=== PATIENT | male | born 1950 | race African-American/Black ===

== ENCOUNTER 2021-01-23 15:36 | Inpatient (IN) | payer BC ==
[~2021-01-23] VITALS: Ht 172.7 cm; Wt 106.6 kg
[2021-01-23] MEDS ORDERED: METHYLPREDNISOLONE SOD SUCC 125 MG/2 ML VIAL IV STA (16:54)
[2021-01-23] MEDS ORDERED: ALBUTEROL (0.083%) 2.5MG/3ML NEB HHN STA (16:54)
[2021-01-23] MEDS ORDERED: IPRATROPIUM BROMIDE (0.02%) 0.5MG/2.5ML NEB HHN STA (16:54)
[2021-01-23 17:42] LABS: BASOPHILS % 0.3 % (0.0-2.0); EOSINOPHILS % 3.2 % (0.0-5.0); HEMOGLOBIN. 12.8 g/dL (14.0-18.0); LYMPHOCYTES % 13.7 % (20.0-50.0); MEAN CORPUSCULAR HEMOGLOBIN 29.6 pg (28.0-32.0); MEAN CORPUSCULAR VOLUME 90.1 fL (80.0-94.0); MEAN PLATELET VOLUME 6.6 fl (7.4-10.4); NEUTROPHILS % 74.8 % (40.0-76.0); PLATELET 315 x1000/uL (130-400); RED BLOOD CELL COUNT 4.33 mill/uL (4.7-6.1); RED CELL DISTRIBUTION WIDTH 15.2 % (11.6-14.6)
[2021-01-23 17:46] LABS: CHLORIDE 104 mEq/L (98-107)
[2021-01-23 17:53] LABS: ETHANOL BLOOD < 10 mg/dL
[2021-01-23 17:59] LABS: INR 1.1; PARTIAL THROMBOPLASTIN TIME 25.2 sec (23.4-31.0); PROTHROMBIN TIME 11.4 sec (9.6-11.0)
[2021-01-23] MEDS ORDERED: SODIUM CHLORIDE 0.9% 1000ML BAG (SEPSIS BOLUS) IV ONE (18:15)
[2021-01-23] MEDS ORDERED: CEFTRIAXONE 1 G PREMIX 50 ML IV ONE (18:15)
[2021-01-23] MEDS ORDERED: AZITHROMYCIN 500MG/250ML 250 ML IV ONE (18:15)
[2021-01-23] MEDS ORDERED: ASPIRIN 325MG EC TABLET PO ONE (18:15)
[2021-01-23] MEDS ORDERED: IOHEXOL-350 100 ML BOTTLE ONE (21:27)
[2021-01-24 06:57] LABS: CLARITY URINE CLEAR (CLEAR); COLOR URINE YELLOW (YELLOW); KETONES URINE TRACE (NEGATIVE); LEUKOCYTE ESTERASE URINE NEGATIVE (NEGATIVE); NITRITE URINE POSITIVE (NEGATIVE); OCCULT BLOOD URINE 3+ (NEGATIVE); PROTEIN URINE TRACE (NEGATIVE); SPECIFIC GRAVITY URINE 1.057 (1.005-1.030)
[2021-01-24 07:25] LABS: *AMPHETAMINES SCREEN URINE NEGATIVE (NEGATIVE); *BARBITURATES SCREEN URINE NEGATIVE (NEGATIVE); *BENZODIAZEPINES SCREEN URINE NEGATIVE (NEGATIVE); *COCAINE SCREEN URINE NEGATIVE (NEGATIVE); CANNABINOID URINE SCREEN NEGATIVE (NEGATIVE); METHADONE URINE SCREEN NEGATIVE (NEGATIVE); OPIATES URINE SCREEN NEGATIVE (NEGATIVE); PHENCYCLIDINE URINE SCREEN NEGATIVE (NEGATIVE)
[2021-01-24] MEDS ORDERED: ONDANSETRON HCL 4MG/2ML INJ IV PRN (11:15)
[2021-01-24] MEDS ORDERED: CLONIDINE 0.1MG TABLET PO PRN (11:15)
[2021-01-24] MEDS ORDERED: LORAZEPAM 0.5MG TABLET PO PRN (11:15)
[2021-01-24] MEDS ORDERED: MAGNESIUM/ALUMINUM HYDROXIDE/SIMETHICONE 30ML UDC PO PRN (11:15)
[2021-01-24] MEDS ORDERED: IPRATROPIUM/ALBUTEROL 0.5-3(2.5)MG/3ML NEB NEB PRN (11:15)
[2021-01-24] MEDS ORDERED: MORPHINE SULFATE 2 MG/ML CPJ (NOT FOR IM USE) IV PRN (11:15)
[2021-01-24] MEDS ORDERED: GUAIFENESIN 200MG/10ML SUGAR FREE UDC PO PRN (11:15)
[2021-01-24] MEDS ORDERED: NA PHOS,M-B/NA PHOS,DI-BA ENEMA 118ML PR PRN (11:15)
[2021-01-24] MEDS ORDERED: ACETAMINOPHEN 325MG TABLET PO PRN (11:15)
[2021-01-24] MEDS ORDERED: ACETAMINOPHEN 650MG SUPP PR PRN (11:15)
[2021-01-24] MEDS ORDERED: DOCUSATE SODIUM 100MG CAPSULE PO PRN (11:15)
[2021-01-24] MEDS ORDERED: HYDROCODONE/ACETAMINOPHEN 5/325MG TABLET PO PRN (11:15)
[2021-01-24] MEDS ORDERED: DIPHENHYDRAMINE 50MG/ML VIAL IV PRN (11:15)
[2021-01-24] MEDS ORDERED: DEXTROSE 50% WATER 50ML SYRINGE IV PRN (11:15)
[2021-01-24 11:43] LABS: BG CARBOXYHEMOGLOBIN 0.3 % (0.5-1.5); BG DEOXYHEMOGLOBIN 5.6 % (0.0-5.0); BG FRACTION INSPIRED OXYGEN 30; BG HCO3 ACT 19.6 mmol/L (22.0-26.0); BG METHEMOGLOBIN 0.2 % (0.0-1.5); BG OXYGEN SATURATION 94.4 % (92.0-98.5); BG OXYHEMOGLOBIN 93.9 % (94.0-97.0); BG PCO2 43.5 mmHg (35.0-45.0); BG PH 7.272 (7.350-7.450); BG PO2 74.1 mmHg (75.0-100.0); BG SAMPLE SITE RIGHT RADIAL; BG TOTAL HEMOGLOBIN 14.5 g/dL (12.0-18.0); BG VENT MODE NASAL CANNULA
[2021-01-24] MEDS ORDERED: SODIUM BICARBONATE 8.4% 1 MEQ/ML 50ML SYR IV NR (13:00)
[2021-01-24] MEDS: ASPIRIN 81MG EC TABLET PO SCH (13:00)
[2021-01-24] MEDS ORDERED: AZITHROMYCIN 500 MG in DEXT 5% WATER 250 ML IV SCH (18:00)
[2021-01-24] MEDS ORDERED: CEFTRIAXONE 1 G PREMIX 50 ML IV SCH (18:30)
[2021-01-24 18:57] VITALS: BP 147/93
[2021-01-24 20:00] VITALS: BP_SYST 142; BP_SYST 147; BP_DIAS 62; BP_DIAS 93
[2021-01-24] MEDS: INSULIN LISPRO 100 UNITS/ML SUBCUT SCH (21:00)
[2021-01-24] MEDS: ATORVASTATIN CALCIUM 20MG TABLET PO SCH (21:00)
[2021-01-24] MEDS: FAMOTIDINE 20MG TABLET PO SCH (21:00)
[2021-01-24] MEDS: BLOOD SUGAR DIAGNOSTIC STRIP TEST SCH (21:00)
[2021-01-24 21:39] LABS: HEMATOCRIT. 45.2 % (42.0-52.0); HEMOGLOBIN. 14.3 g/dL (14.0-18.0); MEAN CORPUSCULAR HEMOGLOBIN 28.7 pg (28.0-32.0); MEAN CORPUSCULAR VOLUME 90.8 fL (80.0-94.0); PLATELET 377 x1000/uL (130-400); RED BLOOD CELL COUNT 4.97 mill/uL (4.7-6.1); RED CELL DISTRIBUTION WIDTH 15.4 % (11.6-14.6)
[2021-01-24 21:54] LABS: CHLORIDE 105 mEq/L (98-107)
[2021-01-24 22:15] LABS: CREATINE KINASE 1154 IU/L (39-308)
[2021-01-24 22:27] LABS: PLATELET ESTIMATE NORMAL
[2021-01-25] VITALS: BP 133/93
[2021-01-25 01:02] LABS: CREATINE KINASE MB FRACTION 18.9 ng/mL (0.5-3.6)
[2021-01-25 01:14] LABS: CREATINE KINASE 1200 IU/L (39-308)
[2021-01-25] MEDS: METHYLPREDNISOLONE SOD SUCC 40 MG/ML VIAL IV SCH ×3 (01:46→21:15)
[2021-01-25] MEDS: ENOXAPARIN 30MG/0.3ML SYR SUBCUT SCH ×3 (01:46→21:16)
[2021-01-25] MEDS: DEXT 5%/0.45% NACL 1000ML 1,000 ML IV SCH ×3 (01:47→21:26)
[2021-01-25 04:00] VITALS: BP 157/87
[2021-01-25] MEDS: CEFTRIAXONE 1,000 MG in DEXTROSE 5% WATER 50 ML IV SCH (04:09)
[2021-01-25] MEDS: INSULIN LISPRO 100 UNITS/ML SUBCUT SCH ×4 (06:32→21:00)
[2021-01-25] MEDS: BLOOD SUGAR DIAGNOSTIC STRIP TEST SCH ×4 (06:32→21:01)
[2021-01-25 06:56] LABS: HEMATOCRIT. 44.1 % (42.0-52.0); HEMOGLOBIN. 14.3 g/dL (14.0-18.0); MEAN CORPUSCULAR HEMOGLOBIN 29.2 pg (28.0-32.0); MEAN CORPUSCULAR VOLUME 90.4 fL (80.0-94.0); PLATELET 367 x1000/uL (130-400); RED BLOOD CELL COUNT 4.88 mill/uL (4.7-6.1); RED CELL DISTRIBUTION WIDTH 15.2 % (11.6-14.6)
[2021-01-25 07:10] LABS: CHLORIDE 105 mEq/L (98-107)
[2021-01-25 08:00] VITALS: BP 142/84
[2021-01-25] MEDS: ASPIRIN 81MG EC TABLET PO SCH (09:00)
[2021-01-25 11:01] LABS: PLATELET ESTIMATE NORMAL
[2021-01-25 12:00] VITALS: BP 138/79
[2021-01-25] MEDS ORDERED: NALOXONE HCL 0.4MG/ML VIAL IV PRN (13:45)
[2021-01-25] MEDS ORDERED: ACETYLCYSTEINE 100MG/ML 10% VIAL 4ML INH NR (15:30)
[2021-01-25 16:00] VITALS: BP 163/107
[2021-01-25 17:11] LABS: CREATINE KINASE MB FRACTION 18.3 ng/mL (0.5-3.6)
[2021-01-25] MEDS ORDERED: HYDRALAZINE 20MG/ML VIAL IV SCH (18:00)
[2021-01-25] MEDS: FLUCONAZOLE 200 MG/100ML BAG 100 ML IV SCH (18:25)
[2021-01-25 20:00] VITALS: BP 146/76
[2021-01-25] MEDS: FAMOTIDINE 20MG TABLET PO SCH (20:20)
[2021-01-25] MEDS: ATORVASTATIN CALCIUM 20MG TABLET PO SCH (20:20)
[2021-01-25] MEDS: NITROGLYCERIN OINT 1GM/INCH UDPKT TD SCH (21:16)
[2021-01-26] VITALS: BP 162/81
[2021-01-26] MEDS: HYDRALAZINE 20MG/ML VIAL IV PRN ×2 (02:25→13:35)
[2021-01-26 04:00] VITALS: BP 146/86
[2021-01-26] MEDS: BLOOD SUGAR DIAGNOSTIC STRIP TEST SCH ×4 (05:42→21:00)
[2021-01-26] MEDS: NITROGLYCERIN OINT 1GM/INCH UDPKT TD SCH (05:55)
[2021-01-26] MEDS: AZITHROMYCIN 500 MG in DEXT 5% WATER 250 ML IV SCH (05:55)
[2021-01-26] MEDS: INSULIN LISPRO 100 UNITS/ML SUBCUT SCH ×4 (06:17→21:00)
[2021-01-26 06:25] LABS: HEMATOCRIT. 42.4 % (42.0-52.0); MEAN CORPUSCULAR HEMOGLOBIN 29.9 pg (28.0-32.0); MEAN CORPUSCULAR VOLUME 90.4 fL (80.0-94.0); MEAN PLATELET VOLUME 7.1 fl (7.4-10.4); PLATELET 344 x1000/uL (130-400); RED BLOOD CELL COUNT 4.69 mill/uL (4.7-6.1); RED CELL DISTRIBUTION WIDTH 15.1 % (11.6-14.6)
[2021-01-26 07:18] LABS: CHLORIDE 100 mEq/L (98-107)
[2021-01-26 07:27] LABS: HDL CHOLESTEROL 39 mg/dL (40-59); LDL CHOLESTEROL 106 mg/dL (5-100)
[2021-01-26 08:00] VITALS: BP 130/83
[2021-01-26] MEDS: ASPIRIN 81MG EC TABLET PO SCH (09:00)
[2021-01-26] MEDS: METHYLPREDNISOLONE SOD SUCC 40 MG/ML VIAL IV SCH ×2 (09:29→23:35)
[2021-01-26] MEDS: CEFTRIAXONE 1,000 MG in DEXTROSE 5% WATER 50 ML IV SCH (09:29)
[2021-01-26] MEDS: ENOXAPARIN 30MG/0.3ML SYR SUBCUT SCH ×2 (09:30→23:37)
[2021-01-26 12:00] VITALS: BP 166/110
[2021-01-26] MEDS ORDERED: NITROGLYCERIN OINT 1GM/INCH UDPKT TD PRN (13:45)
[2021-01-26 13:46] LABS: PLATELET ESTIMATE NORMAL
[2021-01-26 16:00] VITALS: BP 153/92
[2021-01-26] MEDS: DEXT 5%/0.45% NACL 1000ML 1,000 ML IV SCH (16:19)
[2021-01-26 20:00] VITALS: BP 111/89
[2021-01-26] MEDS: IPRATROPIUM/ALBUTEROL 0.5-3(2.5)MG/3ML NEB HHN SCH (21:29)
[2021-01-26 23:10] LABS: HEMATOCRIT. 45.6 % (42.0-52.0); HEMOGLOBIN. 14.8 g/dL (14.0-18.0); MEAN CORPUSCULAR HEMOGLOBIN 29.7 pg (28.0-32.0); MEAN CORPUSCULAR VOLUME 91.3 fL (80.0-94.0); MEAN PLATELET VOLUME 6.6 fl (7.4-10.4); PLATELET 395 x1000/uL (130-400); RED CELL DISTRIBUTION WIDTH 15.2 % (11.6-14.6)
[2021-01-26 23:18] LABS: CHLORIDE 94 mEq/L (98-107)
[2021-01-26] MEDS: FAMOTIDINE 20MG TABLET PO SCH (23:34)
[2021-01-27] VITALS (73 sets, daily range): BP systolic 55–188; BP diastolic 33–123
[2021-01-27 00:51] LABS: BG BASE EXCESS 5.4 mmol/L (-2.0-2.0); BG CARBOXYHEMOGLOBIN 0.6 % (0.5-1.5); BG DEOXYHEMOGLOBIN 4.8 % (0.0-5.0); BG HCO3 ACT 43.8 mmol/L (22.0-26.0); BG METHEMOGLOBIN 0.5 % (0.0-1.5); BG OXYGEN SATURATION 95.1 % (92.0-98.5); BG OXYHEMOGLOBIN 94.1 % (94.0-97.0); BG PCO2 179.3 mmHg (35.0-45.0); BG PH 7.006 (7.350-7.450); BG PO2 100.7 mmHg (75.0-100.0); BG SAMPLE SITE LEFT RADIAL; BG TOTAL RESPIRATORY RATE 16 b/min; BG VENT MODE MASK - NRB
[2021-01-27] MEDS: PROPOFOL 10MG/ML 100ML 100 ML IV PRN ×3 (01:52→13:17)
[2021-01-27] MEDS ORDERED: NOREPINEPHRINE 8 MG in DEXT 5% WATER 242 ML IV PRN (03:00)
[2021-01-27] MEDS ORDERED: SODIUM CHLORIDE 0.9% 250 ML IV ONE (03:30)
[2021-01-27 03:51] LABS: BG CARBOXYHEMOGLOBIN 0.3 % (0.5-1.5); BG DEOXYHEMOGLOBIN 6.1 % (0.0-5.0); BG FRACTION INSPIRED OXYGEN 100; BG HCO3 ACT 33.9 mmol/L (22.0-26.0); BG METHEMOGLOBIN 0.3 % (0.0-1.5); BG OXYGEN SATURATION 93.9 % (92.0-98.5); BG OXYHEMOGLOBIN 93.3 % (94.0-97.0); BG PCO2 76.7 mmHg (35.0-45.0); BG PH 7.263 (7.350-7.450); BG PO2 73.7 mmHg (75.0-100.0); BG SAMPLE SITE RIGHT RADIAL; BG TOTAL HEMOGLOBIN 15.2 g/dL (12.0-18.0); BG VENT MODE AC
[2021-01-27] MEDS: AZITHROMYCIN 500 MG in DEXT 5% WATER 250 ML IV SCH (05:17)
[2021-01-27 06:10] LABS: PLATELET ESTIMATE NORMAL
[2021-01-27 06:20] LABS: HEMATOCRIT. 44.3 % (42.0-52.0); HEMOGLOBIN. 13.9 g/dL (14.0-18.0); MEAN CORPUSCULAR HEMOGLOBIN 28.7 pg (28.0-32.0); MEAN CORPUSCULAR VOLUME 91.9 fL (80.0-94.0); MEAN PLATELET VOLUME 6.9 fl (7.4-10.4); PLATELET 379 x1000/uL (130-400); RED BLOOD CELL COUNT 4.82 mill/uL (4.7-6.1)
[2021-01-27 06:21] LABS: CHLORIDE 94 mEq/L (98-107)
[2021-01-27] MEDS: BLOOD SUGAR DIAGNOSTIC STRIP TEST SCH ×3 (07:50→17:16)
[2021-01-27] MEDS: IPRATROPIUM/ALBUTEROL 0.5-3(2.5)MG/3ML NEB HHN SCH ×2 (08:15→20:53)
[2021-01-27] MEDS: ACETYLCYSTEINE 100MG/ML 10% VIAL 4ML INH SCH ×2 (08:15→20:53)
[2021-01-27] MEDS: INSULIN LISPRO 100 UNITS/ML SUBCUT SCH ×3 (08:20→17:16)
[2021-01-27 08:34] LABS: PLATELET ESTIMATE NORMAL
[2021-01-27] MEDS: ASPIRIN 81MG EC TABLET PO SCH (09:00)
[2021-01-27] MEDS: ENOXAPARIN 30MG/0.3ML SYR SUBCUT SCH (09:00)
[2021-01-27] MEDS ORDERED: LIDOCAINE HCL 1% 10 MG/ML 10ML VIAL ONE (09:20)
[2021-01-27] MEDS: METHYLPREDNISOLONE SOD SUCC 40 MG/ML VIAL IV SCH ×2 (10:47→20:57)
[2021-01-27] MEDS: CEFTRIAXONE 1,000 MG in DEXTROSE 5% WATER 50 ML IV SCH (10:47)
[2021-01-27] MEDS: DEXT 5%/0.45% NACL 1000ML 1,000 ML IV SCH (10:48)
[2021-01-27 11:33] LABS: BG CARBOXYHEMOGLOBIN 0.3 % (0.5-1.5); BG DEOXYHEMOGLOBIN 1.7 % (0.0-5.0); BG FRACTION INSPIRED OXYGEN 100; BG HCO3 ACT 29.9 mmol/L (22.0-26.0); BG METHEMOGLOBIN 0.2 % (0.0-1.5); BG OXYGEN SATURATION 98.3 % (92.0-98.5); BG OXYHEMOGLOBIN 97.8 % (94.0-97.0); BG PCO2 45.3 mmHg (35.0-45.0); BG PH 7.438 (7.350-7.450); BG PO2 102.2 mmHg (75.0-100.0); BG SAMPLE SITE LEFT RADIAL; BG TOTAL HEMOGLOBIN 14.6 g/dL (12.0-18.0); BG VENT MODE VENT - AC
[2021-01-27] MEDS: PANTOPRAZOLE SODIUM 40 MG/VIAL IV SCH ×2 (12:15→17:21)
[2021-01-27 14:20] LABS: TOTAL IRON BINDING CAPACITY 304 ug/dL (250-450)
[2021-01-27 14:40] LABS: FOLIC ACID (FOLATE) SERUM 3.4 ng/mL (>5.38)
[2021-01-27 16:56] LABS: HEMOGLOBIN 13.6 g/dL (14.0-18.0)
[2021-01-27] MEDS: PIPERACILLIN/TAZOBACTAM 3.375 G in DEXTROSE 5% WATER 50 ML IV SCH ×2 (17:20→21:32)
[2021-01-27] MEDS: FLUCONAZOLE 200 MG/100ML BAG 100 ML IV SCH (17:20)
[2021-01-27] MEDS: SUCRALFATE 1G TABLET NG SCH ×2 (17:21→20:58)
[2021-01-27] MEDS: ATORVASTATIN CALCIUM 40MG TABLET PO SCH (20:58)
[2021-01-27 23:51] LABS: HEMATOCRIT 40.1 % (42.0-52.0); HEMOGLOBIN 13.1 g/dL (14.0-18.0)
[2021-01-28] VITALS (101 sets, daily range): BP systolic 70–125; BP diastolic 30–90
[2021-01-28] MEDS: IPRATROPIUM/ALBUTEROL 0.5-3(2.5)MG/3ML NEB HHN SCH ×4 (00:14→20:37)
[2021-01-28] MEDS: BLOOD SUGAR DIAGNOSTIC STRIP TEST SCH ×3 (00:19→11:50)
[2021-01-28] MEDS: DEXT 5%/0.45% NACL 1000ML 1,000 ML IV SCH ×2 (00:20→10:29)
[2021-01-28] MEDS: PROPOFOL 10MG/ML 100ML 100 ML IV PRN ×4 (00:52→22:43)
[2021-01-28] MEDS: PIPERACILLIN/TAZOBACTAM 3.375 G in DEXTROSE 5% WATER 50 ML IV SCH ×3 (06:32→21:45)
[2021-01-28] MEDS: INSULIN LISPRO 100 UNITS/ML SUBCUT SCH ×4 (06:35→18:54)
[2021-01-28 06:52] LABS: HEMATOCRIT. 41.4 % (42.0-52.0); HEMOGLOBIN. 13.6 g/dL (14.0-18.0); MEAN CORPUSCULAR HEMOGLOBIN 30.1 pg (28.0-32.0); MEAN CORPUSCULAR VOLUME 91.3 fL (80.0-94.0); MEAN PLATELET VOLUME 7.1 fl (7.4-10.4); PLATELET 267 x1000/uL (130-400); RED BLOOD CELL COUNT 4.53 mill/uL (4.7-6.1); RED CELL DISTRIBUTION WIDTH 15.2 % (11.6-14.6)
[2021-01-28] MEDS ORDERED: PROPOFOL 10MG/ML 100ML 100 ML IV PRN (07:30)
[2021-01-28 08:04] LABS: PLATELET ESTIMATE NORMAL
[2021-01-28 08:50] LABS: BG BASE EXCESS 12.4 mmol/L (-2.0-2.0); BG CARBOXYHEMOGLOBIN 0.1 % (0.5-1.5); BG DEOXYHEMOGLOBIN 3.5 % (0.0-5.0); BG FRACTION INSPIRED OXYGEN 90; BG HCO3 ACT 39.3 mmol/L (22.0-26.0); BG METHEMOGLOBIN 0.3 % (0.0-1.5); BG OXYGEN SATURATION 96.5 % (92.0-98.5); BG OXYHEMOGLOBIN 96.1 % (94.0-97.0); BG PCO2 59.4 mmHg (35.0-45.0); BG PH 7.439 (7.350-7.450); BG SAMPLE SITE LEFT RADIAL; BG TOTAL HEMOGLOBIN 14.8 g/dL (12.0-18.0); BG TOTAL RESPIRATORY RATE 19 b/min; BG VENT MODE VENT - AC
[2021-01-28] MEDS: ACETYLCYSTEINE 100MG/ML 10% VIAL 4ML INH SCH ×2 (08:52→14:33)
[2021-01-28] MEDS: PANTOPRAZOLE SODIUM 40 MG/VIAL IV SCH ×2 (10:23→17:46)
[2021-01-28] MEDS: METHYLPREDNISOLONE SOD SUCC 40 MG/ML VIAL IV SCH ×2 (10:23→21:45)
[2021-01-28] MEDS: SUCRALFATE 1G TABLET NG SCH ×4 (10:24→21:45)
[2021-01-28 12:35] LABS: HEMATOCRIT 42.8 % (42.0-52.0); HEMOGLOBIN 14.2 g/dL (14.0-18.0)
[2021-01-28] MEDS: FLUCONAZOLE 200 MG/100ML BAG 100 ML IV SCH (17:48)
[2021-01-28 19:18] LABS: HEMATOCRIT 41.8 % (42.0-52.0); HEMOGLOBIN 13.8 g/dL (14.0-18.0)
[2021-01-28] MEDS: ATORVASTATIN CALCIUM 40MG TABLET PO SCH (21:45)
[2021-01-29] VITALS (100 sets, daily range): BP systolic 72–131; BP diastolic 50–100
[2021-01-29] MEDS: BLOOD SUGAR DIAGNOSTIC STRIP TEST SCH ×4 (00:05→18:57)
[2021-01-29] MEDS: INSULIN LISPRO 100 UNITS/ML SUBCUT SCH ×4 (00:19→18:00)
[2021-01-29 00:52] LABS: HEMATOCRIT 41.1 % (42.0-52.0); HEMOGLOBIN 13.6 g/dL (14.0-18.0)
[2021-01-29] MEDS: IPRATROPIUM/ALBUTEROL 0.5-3(2.5)MG/3ML NEB HHN SCH ×4 (02:23→20:31)
[2021-01-29] MEDS: ACETYLCYSTEINE 100MG/ML 10% VIAL 4ML INH SCH ×4 (02:23→20:30)
[2021-01-29] MEDS: PIPERACILLIN/TAZOBACTAM 3.375 G in DEXTROSE 5% WATER 50 ML IV SCH ×3 (05:32→22:11)
[2021-01-29] MEDS: DEXT 5%/0.45% NACL 1000ML 1,000 ML IV SCH ×2 (05:51→23:56)
[2021-01-29 06:03] LABS: HEMATOCRIT. 41.9 % (42.0-52.0); HEMOGLOBIN. 13.4 g/dL (14.0-18.0); MEAN CORPUSCULAR HEMOGLOBIN 29.1 pg (28.0-32.0); MEAN CORPUSCULAR VOLUME 91.1 fL (80.0-94.0); MEAN PLATELET VOLUME 7.3 fl (7.4-10.4); PLATELET 282 x1000/uL (130-400); RED CELL DISTRIBUTION WIDTH 14.9 % (11.6-14.6)
[2021-01-29 06:17] LABS: CHLORIDE 97 mEq/L (98-107)
[2021-01-29 07:41] LABS: PLATELET ESTIMATE NORMAL
[2021-01-29] MEDS: SUCRALFATE 1G TABLET NG SCH ×4 (08:52→20:39)
[2021-01-29] MEDS: PANTOPRAZOLE SODIUM 40 MG/VIAL IV SCH ×2 (08:52→19:02)
[2021-01-29] MEDS: METHYLPREDNISOLONE SOD SUCC 40 MG/ML VIAL IV SCH ×2 (08:52→20:39)
[2021-01-29] MEDS: PROPOFOL 10MG/ML 100ML 100 ML IV PRN ×2 (09:00→19:10)
[2021-01-29 09:17] LABS: BG CARBOXYHEMOGLOBIN 0.3 % (0.5-1.5); BG DEOXYHEMOGLOBIN 8.2 % (0.0-5.0); BG FRACTION INSPIRED OXYGEN 100; BG HCO3 ACT 35.2 mmol/L (22.0-26.0); BG METHEMOGLOBIN 0.3 % (0.0-1.5); BG OXYGEN SATURATION 91.8 % (92.0-98.5); BG OXYHEMOGLOBIN 91.2 % (94.0-97.0); BG PCO2 59.6 mmHg (35.0-45.0); BG PH 7.389 (7.350-7.450); BG PO2 64.5 mmHg (75.0-100.0); BG SAMPLE SITE RIGHT RADIAL; BG TOTAL HEMOGLOBIN 14.9 g/dL (12.0-18.0); BG VENT MODE VENT - AC
[2021-01-29 11:35] LABS: BG BASE EXCESS 8.1 mmol/L (-2.0-2.0); BG CARBOXYHEMOGLOBIN 0.3 % (0.5-1.5); BG DEOXYHEMOGLOBIN 8.1 % (0.0-5.0); BG FRACTION INSPIRED OXYGEN 100; BG HCO3 ACT 35.2 mmol/L (22.0-26.0); BG METHEMOGLOBIN 0.4 % (0.0-1.5); BG OXYGEN SATURATION 91.8 % (92.0-98.5); BG OXYHEMOGLOBIN 91.2 % (94.0-97.0); BG PCO2 58.5 mmHg (35.0-45.0); BG PH 7.397 (7.350-7.450); BG PO2 64.4 mmHg (75.0-100.0); BG SAMPLE SITE LEFT RADIAL; BG TOTAL HEMOGLOBIN 14.9 g/dL (12.0-18.0); BG TOTAL RESPIRATORY RATE 20 b/min; BG VENT MODE VENT - AC
[2021-01-29] MEDS ORDERED: BISACODYL 5MG TABLET PO NR (16:00)
[2021-01-29] MEDS ORDERED: BISACODYL 10MG SUPP PR NR ×2 (16:00→20:00)
[2021-01-29] MEDS: FLUCONAZOLE 200 MG/100ML BAG 100 ML IV SCH (18:57)
[2021-01-29] MEDS: METOCLOPRAMIDE HCL 10MG/2ML VIAL IV SCH ×2 (19:02→23:20)
[2021-01-29] MEDS: CYANOCOBALAMIN 1000MCG/ML VIAL IM SCH (19:09)
[2021-01-29] MEDS: LACTULOSE 20G/30ML UDC PO SCH (20:39)
[2021-01-29] MEDS: ATORVASTATIN CALCIUM 40MG TABLET PO SCH (20:39)
[2021-01-30] VITALS (75 sets, daily range): BP systolic 74–143; BP diastolic 49–91
[2021-01-30] MEDS: BLOOD SUGAR DIAGNOSTIC STRIP TEST SCH ×4 (00:31→18:30)
[2021-01-30] MEDS: IPRATROPIUM/ALBUTEROL 0.5-3(2.5)MG/3ML NEB HHN SCH ×4 (01:37→20:03)
[2021-01-30] MEDS: METOCLOPRAMIDE HCL 10MG/2ML VIAL IV SCH ×3 (05:32→17:54)
[2021-01-30] MEDS: PIPERACILLIN/TAZOBACTAM 3.375 G in DEXTROSE 5% WATER 50 ML IV SCH ×3 (05:32→21:35)
[2021-01-30] MEDS: PROPOFOL 10MG/ML 100ML 100 ML IV PRN ×2 (05:50→19:36)
[2021-01-30] MEDS: INSULIN LISPRO 100 UNITS/ML SUBCUT SCH ×4 (05:51→18:00)
[2021-01-30 06:32] LABS: HEMATOCRIT. 43.6 % (42.0-52.0); HEMOGLOBIN. 14.1 g/dL (14.0-18.0); MEAN CORPUSCULAR HEMOGLOBIN 29.5 pg (28.0-32.0); MEAN CORPUSCULAR VOLUME 91.1 fL (80.0-94.0); MEAN PLATELET VOLUME 7.6 fl (7.4-10.4); PLATELET 256 x1000/uL (130-400); RED BLOOD CELL COUNT 4.78 mill/uL (4.7-6.1); RED CELL DISTRIBUTION WIDTH 14.9 % (11.6-14.6)
[2021-01-30 06:37] LABS: CHLORIDE 98 mEq/L (98-107)
[2021-01-30 07:21] LABS: INR 1.1; PROTHROMBIN TIME 11.4 sec (9.6-11.0)
[2021-01-30] MEDS: SUCRALFATE 1G TABLET NG SCH ×4 (08:23→21:35)
[2021-01-30] MEDS: PANTOPRAZOLE SODIUM 40 MG/VIAL IV SCH ×2 (08:23→17:53)
[2021-01-30] MEDS: LACTULOSE 20G/30ML UDC PO SCH (08:23)
[2021-01-30] MEDS: METHYLPREDNISOLONE SOD SUCC 40 MG/ML VIAL IV SCH ×2 (08:23→21:35)
[2021-01-30] MEDS: CYANOCOBALAMIN 1000MCG/ML VIAL IM SCH (08:23)
[2021-01-30] MEDS: ACETYLCYSTEINE 100MG/ML 10% VIAL 4ML INH SCH (08:42)
[2021-01-30 09:00] LABS: BG BASE EXCESS 6.3 mmol/L (-2.0-2.0); BG CARBOXYHEMOGLOBIN 0.2 % (0.5-1.5); BG DEOXYHEMOGLOBIN 4.7 % (0.0-5.0); BG FRACTION INSPIRED OXYGEN 100; BG HCO3 ACT 34.3 mmol/L (22.0-26.0); BG METHEMOGLOBIN 0.5 % (0.0-1.5); BG OXYGEN SATURATION 95.3 % (92.0-98.5); BG OXYHEMOGLOBIN 94.6 % (94.0-97.0); BG PCO2 64.1 mmHg (35.0-45.0); BG PH 7.346 (7.350-7.450); BG PO2 79.6 mmHg (75.0-100.0); BG SAMPLE SITE LEFT RADIAL; BG TOTAL HEMOGLOBIN 14.6 g/dL (12.0-18.0); BG TOTAL RESPIRATORY RATE 18 b/min; BG VENT MODE VENT - AC
[2021-01-30 10:10] LABS: BG BASE EXCESS 6.4 mmol/L (-2.0-2.0); BG CARBOXYHEMOGLOBIN 0.3 % (0.5-1.5); BG DEOXYHEMOGLOBIN 5.4 % (0.0-5.0); BG HCO3 ACT 34.1 mmol/L (22.0-26.0); BG METHEMOGLOBIN 0.3 % (0.0-1.5); BG OXYGEN SATURATION 94.6 % (92.0-98.5); BG PCO2 62.6 mmHg (35.0-45.0); BG PH 7.354 (7.350-7.450); BG PO2 76.5 mmHg (75.0-100.0); BG SAMPLE SITE RIGHT RADIAL; BG TOTAL HEMOGLOBIN 14.6 g/dL (12.0-18.0); BG VENT MODE VENT - AC
[2021-01-30 11:50] LABS: NUCLEATED RED BLOOD CELLS 1 /100 WBC; PLATELET ESTIMATE NORMAL
[2021-01-30 12:26] LABS: BG CARBOXYHEMOGLOBIN 0.3 % (0.5-1.5); BG DEOXYHEMOGLOBIN 8.6 % (0.0-5.0); BG HCO3 ACT 27.5 mmol/L (22.0-26.0); BG METHEMOGLOBIN 0.7 % (0.0-1.5); BG OXYGEN SATURATION 91.3 % (92.0-98.5); BG OXYHEMOGLOBIN 90.4 % (94.0-97.0); BG PCO2 46.2 mmHg (35.0-45.0); BG PH 7.393 (7.350-7.450); BG PO2 63.6 mmHg (75.0-100.0); BG SAMPLE SITE RIGHT RADIAL; BG TOTAL HEMOGLOBIN 14.1 g/dL (12.0-18.0); BG VENT MODE VENT - AC
[2021-01-30] MEDS ORDERED: LACTULOSE 20G/30ML UDC PO PRN (15:15)
[2021-01-30] MEDS: FLUCONAZOLE 200 MG/100ML BAG 100 ML IV SCH (17:54)
[2021-01-30] MEDS: ATORVASTATIN CALCIUM 40MG TABLET PO SCH (21:35)
[2021-01-31] VITALS (90 sets, daily range): BP systolic 94–139; BP diastolic 49–97
[2021-01-31] MEDS: BLOOD SUGAR DIAGNOSTIC STRIP TEST SCH ×5 (00:20→23:32)
[2021-01-31] MEDS: METOCLOPRAMIDE HCL 10MG/2ML VIAL IV SCH ×5 (00:20→23:38)
[2021-01-31] MEDS: IPRATROPIUM/ALBUTEROL 0.5-3(2.5)MG/3ML NEB HHN SCH ×5 (01:01→23:56)
[2021-01-31] MEDS: PIPERACILLIN/TAZOBACTAM 3.375 G in DEXTROSE 5% WATER 50 ML IV SCH ×3 (05:22→22:08)
[2021-01-31] MEDS: INSULIN LISPRO 100 UNITS/ML SUBCUT SCH ×5 (05:27→23:39)
[2021-01-31 05:46] LABS: HEMATOCRIT. 41.3 % (42.0-52.0); HEMOGLOBIN. 13.3 g/dL (14.0-18.0); MEAN CORPUSCULAR HEMOGLOBIN 29.2 pg (28.0-32.0); MEAN CORPUSCULAR VOLUME 90.6 fL (80.0-94.0); MEAN PLATELET VOLUME 7.5 fl (7.4-10.4); PLATELET 221 x1000/uL (130-400); RED BLOOD CELL COUNT 4.56 mill/uL (4.7-6.1)
[2021-01-31 05:56] LABS: CHLORIDE 99 mEq/L (98-107)
[2021-01-31] MEDS: CYANOCOBALAMIN 1000MCG/ML VIAL IM SCH (08:52)
[2021-01-31] MEDS: PANTOPRAZOLE SODIUM 40 MG/VIAL IV SCH ×2 (08:52→16:59)
[2021-01-31] MEDS: SUCRALFATE 1G TABLET NG SCH ×4 (08:52→20:31)
[2021-01-31] MEDS: METHYLPREDNISOLONE SOD SUCC 40 MG/ML VIAL IV SCH ×2 (08:53→20:30)
[2021-01-31 10:03] LABS: PLATELET ESTIMATE NORMAL
[2021-01-31 10:32] LABS: BG BASE EXCESS 7.3 mmol/L (-2.0-2.0); BG CARBOXYHEMOGLOBIN 0.6 % (0.5-1.5); BG HCO3 ACT 33.5 mmol/L (22.0-26.0); BG METHEMOGLOBIN 0.3 % (0.0-1.5); BG OXYGEN SATURATION 92.9 % (92.0-98.5); BG OXYHEMOGLOBIN 92.1 % (94.0-97.0); BG PCO2 53.5 mmHg (35.0-45.0); BG PH 7.414 (7.350-7.450); BG PO2 65.7 mmHg (75.0-100.0); BG SAMPLE SITE LEFT RADIAL; BG TOTAL HEMOGLOBIN 13.8 g/dL (12.0-18.0); BG VENT MODE VENT - AC
[2021-01-31 11:07] LABS: BG FRACTION INSPIRED OXYGEN 100
[2021-01-31] MEDS: PROPOFOL 10MG/ML 100ML 100 ML IV PRN (11:26)
[2021-01-31] MEDS: ATORVASTATIN CALCIUM 40MG TABLET PO SCH (20:31)
[2021-02-01] VITALS (82 sets, daily range): BP systolic 81–150; BP diastolic 49–99
[2021-02-01] MEDS: PROPOFOL 10MG/ML 100ML 100 ML IV PRN ×3 (01:33→21:04)
[2021-02-01] MEDS: BLOOD SUGAR DIAGNOSTIC STRIP TEST SCH ×4 (05:10→23:59)
[2021-02-01] MEDS: METOCLOPRAMIDE HCL 10MG/2ML VIAL IV SCH ×4 (05:22→23:59)
[2021-02-01] MEDS: PIPERACILLIN/TAZOBACTAM 3.375 G in DEXTROSE 5% WATER 50 ML IV SCH (05:22)
[2021-02-01] MEDS: INSULIN LISPRO 100 UNITS/ML SUBCUT SCH ×4 (05:23→23:58)
[2021-02-01 05:33] LABS: HEMATOCRIT. 39.9 % (42.0-52.0); HEMOGLOBIN. 12.7 g/dL (14.0-18.0); MEAN CORPUSCULAR HEMOGLOBIN 28.7 pg (28.0-32.0); MEAN CORPUSCULAR VOLUME 90.3 fL (80.0-94.0); MEAN PLATELET VOLUME 7.5 fl (7.4-10.4); PLATELET 222 x1000/uL (130-400); RED BLOOD CELL COUNT 4.42 mill/uL (4.7-6.1)
[2021-02-01 05:38] LABS: CHLORIDE 98 mEq/L (98-107)
[2021-02-01] MEDS: PANTOPRAZOLE SODIUM 40 MG/VIAL IV SCH ×2 (08:53→17:45)
[2021-02-01] MEDS: SUCRALFATE 1G TABLET NG SCH ×4 (08:53→20:18)
[2021-02-01] MEDS: METHYLPREDNISOLONE SOD SUCC 40 MG/ML VIAL IV SCH ×2 (08:53→20:18)
[2021-02-01] MEDS: CYANOCOBALAMIN 1000MCG/ML VIAL IM SCH (08:53)
[2021-02-01] MEDS: IPRATROPIUM/ALBUTEROL 0.5-3(2.5)MG/3ML NEB HHN SCH ×3 (09:01→21:36)
[2021-02-01 10:42] LABS: BG BASE EXCESS 8.9 mmol/L (-2.0-2.0); BG CARBOXYHEMOGLOBIN 0.2 % (0.5-1.5); BG DEOXYHEMOGLOBIN 4.5 % (0.0-5.0); BG FRACTION INSPIRED OXYGEN 100; BG HCO3 ACT 34.7 mmol/L (22.0-26.0); BG METHEMOGLOBIN 0.4 % (0.0-1.5); BG OXYGEN SATURATION 95.5 % (92.0-98.5); BG OXYHEMOGLOBIN 94.9 % (94.0-97.0); BG PCO2 52.7 mmHg (35.0-45.0); BG PH 7.437 (7.350-7.450); BG PO2 77.2 mmHg (75.0-100.0); BG SAMPLE SITE RIGHT RADIAL; BG TOTAL HEMOGLOBIN 13.7 g/dL (12.0-18.0); BG VENT MODE VENT - AC
[2021-02-01 14:59] LABS: PLATELET ESTIMATE NORMAL
[2021-02-01] MEDS: ATORVASTATIN CALCIUM 40MG TABLET PO SCH (20:18)
[2021-02-02] VITALS (83 sets, daily range): BP systolic 90–136; BP diastolic 53–94
[2021-02-02] MEDS: IPRATROPIUM/ALBUTEROL 0.5-3(2.5)MG/3ML NEB HHN SCH ×4 (01:42→20:29)
[2021-02-02] MEDS: METOCLOPRAMIDE HCL 10MG/2ML VIAL IV SCH ×3 (05:06→17:40)
[2021-02-02] MEDS: PROPOFOL 10MG/ML 100ML 100 ML IV PRN ×3 (05:07→17:36)
[2021-02-02] MEDS: INSULIN LISPRO 100 UNITS/ML SUBCUT SCH ×3 (05:32→17:25)
[2021-02-02] MEDS: BLOOD SUGAR DIAGNOSTIC STRIP TEST SCH ×3 (05:32→17:25)
[2021-02-02 05:40] LABS: HEMATOCRIT. 39.3 % (42.0-52.0); HEMOGLOBIN. 12.6 g/dL (14.0-18.0); MEAN CORPUSCULAR HEMOGLOBIN 29.3 pg (28.0-32.0); MEAN CORPUSCULAR VOLUME 91.3 fL (80.0-94.0); PLATELET 216 x1000/uL (130-400); RED BLOOD CELL COUNT 4.31 mill/uL (4.7-6.1); RED CELL DISTRIBUTION WIDTH 15.2 % (11.6-14.6)
[2021-02-02 05:48] LABS: CHLORIDE 99 mEq/L (98-107)
[2021-02-02 07:38] LABS: PLATELET ESTIMATE NORMAL
[2021-02-02 08:31] LABS: VITAMIN B12 SERUM > 2000.0 pg/mL (211-911)
[2021-02-02] MEDS: METHYLPREDNISOLONE SOD SUCC 40 MG/ML VIAL IV SCH ×2 (08:34→21:34)
[2021-02-02] MEDS: PANTOPRAZOLE SODIUM 40 MG/VIAL IV SCH ×2 (08:35→16:52)
[2021-02-02] MEDS: SUCRALFATE 1G TABLET NG SCH ×4 (08:35→21:34)
[2021-02-02 08:43] LABS: BG BASE EXCESS 6.4 mmol/L (-2.0-2.0); BG CARBOXYHEMOGLOBIN 0.2 % (0.5-1.5); BG DEOXYHEMOGLOBIN 4.1 % (0.0-5.0); BG FRACTION INSPIRED OXYGEN 75; BG HCO3 ACT 30.5 mmol/L (22.0-26.0); BG METHEMOGLOBIN 0.4 % (0.0-1.5); BG OXYGEN SATURATION 95.9 % (92.0-98.5); BG OXYHEMOGLOBIN 95.3 % (94.0-97.0); BG PCO2 41.6 mmHg (35.0-45.0); BG PH 7.483 (7.350-7.450); BG PO2 78.6 mmHg (75.0-100.0); BG TOTAL HEMOGLOBIN 13.3 g/dL (12.0-18.0); BG VENT MODE VENT - AC
[2021-02-02] MEDS ORDERED: MEROPENEM 500 MG in SODIUM CHLORIDE 0.9% 50 ML IV SCH (14:30)
[2021-02-02] MEDS: MEROPENEM 1000MG in NORMAL SALINE 100ML IV SCH ×2 (16:40→21:34)
[2021-02-02] MEDS: ATORVASTATIN CALCIUM 40MG TABLET PO SCH (21:34)
[2021-02-03] VITALS (82 sets, daily range): BP systolic 94–149; BP diastolic 32–93
[2021-02-03] MEDS: BLOOD SUGAR DIAGNOSTIC STRIP TEST SCH ×4 (00:26→17:32)
[2021-02-03] MEDS: IPRATROPIUM/ALBUTEROL 0.5-3(2.5)MG/3ML NEB HHN SCH ×3 (01:43→20:10)
[2021-02-03] MEDS: PROPOFOL 10MG/ML 100ML 100 ML IV PRN ×4 (02:27→21:54)
[2021-02-03] MEDS: INSULIN LISPRO 100 UNITS/ML SUBCUT SCH ×4 (05:38→17:32)
[2021-02-03] MEDS: MEROPENEM 1000MG in NORMAL SALINE 100ML IV SCH ×3 (05:38→21:53)
[2021-02-03 06:20] LABS: CHLORIDE 99 mEq/L (98-107); HEMATOCRIT. 39.6 % (42.0-52.0); HEMOGLOBIN. 12.5 g/dL (14.0-18.0); MEAN CORPUSCULAR VOLUME 91.4 fL (80.0-94.0); MEAN PLATELET VOLUME 7.8 fl (7.4-10.4); PLATELET 217 x1000/uL (130-400); RED BLOOD CELL COUNT 4.33 mill/uL (4.7-6.1); RED CELL DISTRIBUTION WIDTH 15.1 % (11.6-14.6)
[2021-02-03] MEDS: METHYLPREDNISOLONE SOD SUCC 40 MG/ML VIAL IV SCH ×2 (08:04→20:27)
[2021-02-03] MEDS: PANTOPRAZOLE SODIUM 40 MG/VIAL IV SCH ×2 (08:04→17:32)
[2021-02-03] MEDS: CYANOCOBALAMIN 1000MCG TABLET PO SCH (08:05)
[2021-02-03] MEDS: SUCRALFATE 1G TABLET NG SCH ×4 (08:05→20:27)
[2021-02-03 08:37] LABS: BG CARBOXYHEMOGLOBIN 0.3 % (0.5-1.5); BG DEOXYHEMOGLOBIN 3.5 % (0.0-5.0); BG FRACTION INSPIRED OXYGEN 75; BG HCO3 ACT 33.5 mmol/L (22.0-26.0); BG METHEMOGLOBIN 0.1 % (0.0-1.5); BG OXYGEN SATURATION 96.5 % (92.0-98.5); BG OXYHEMOGLOBIN 96.1 % (94.0-97.0); BG PCO2 55.3 mmHg (35.0-45.0); BG PO2 92.5 mmHg (75.0-100.0); BG SAMPLE SITE LEFT RADIAL; BG TOTAL HEMOGLOBIN 13.6 g/dL (12.0-18.0); BG TOTAL RESPIRATORY RATE 20 b/min; BG VENT MODE VENT - AC
[2021-02-03 14:55] LABS: PLATELET ESTIMATE NORMAL
[2021-02-03 19:21] LABS: HEMATOCRIT 44.2 % (42.0-52.0); HEMOGLOBIN 13.9 g/dL (14.0-18.0)
[2021-02-03] MEDS: ATORVASTATIN CALCIUM 40MG TABLET PO SCH (20:27)
[2021-02-04] VITALS (68 sets, daily range): BP systolic 71–159; BP diastolic 43–92
[2021-02-04] MEDS: BLOOD SUGAR DIAGNOSTIC STRIP TEST SCH ×3 (00:12→12:23)
[2021-02-04] MEDS: IPRATROPIUM/ALBUTEROL 0.5-3(2.5)MG/3ML NEB HHN SCH ×3 (02:19→14:45)
[2021-02-04] MEDS: PROPOFOL 10MG/ML 100ML 100 ML IV PRN ×2 (04:26→10:30)
[2021-02-04] MEDS: INSULIN LISPRO 100 UNITS/ML SUBCUT SCH ×3 (06:00→12:00)
[2021-02-04] MEDS: MEROPENEM 1000MG in NORMAL SALINE 100ML IV SCH ×2 (06:12→14:24)
[2021-02-04 06:16] LABS: HEMATOCRIT. 47.7 % (42.0-52.0); HEMOGLOBIN. 15.2 g/dL (14.0-18.0); MEAN CORPUSCULAR HEMOGLOBIN 29.5 pg (28.0-32.0); MEAN CORPUSCULAR VOLUME 92.6 fL (80.0-94.0); MEAN PLATELET VOLUME 8.4 fl (7.4-10.4); PLATELET 218 x1000/uL (130-400); RED BLOOD CELL COUNT 5.15 mill/uL (4.7-6.1)
[2021-02-04] MEDS: SUCRALFATE 1G TABLET NG SCH ×3 (07:50→17:13)
[2021-02-04 08:25] LABS: BG BASE EXCESS 1.7 mmol/L (-2.0-2.0); BG CARBOXYHEMOGLOBIN 0.6 % (0.5-1.5); BG DEOXYHEMOGLOBIN 9.9 % (0.0-5.0); BG FRACTION INSPIRED OXYGEN 60; BG METHEMOGLOBIN 0.5 % (0.0-1.5); BG PCO2 49.7 mmHg (35.0-45.0); BG PH 7.368 (7.350-7.450); BG PO2 60.2 mmHg (75.0-100.0); BG SAMPLE SITE RIGHT RADIAL; BG VENT MODE VENT - AC
[2021-02-04] MEDS: PANTOPRAZOLE SODIUM 40 MG/VIAL IV SCH ×2 (09:20→17:13)
[2021-02-04] MEDS: CYANOCOBALAMIN 1000MCG TABLET PO SCH (09:20)
[2021-02-04] MEDS: METHYLPREDNISOLONE SOD SUCC 40 MG/ML VIAL IV SCH (09:20)
[2021-02-04] MEDS ORDERED: PROPOFOL 10MG/ML 100ML 100 ML IV PRN (09:30)
[2021-02-04 10:50] LABS: BG BASE EXCESS 5.8 mmol/L (-2.0-2.0); BG CARBOXYHEMOGLOBIN 0.3 % (0.5-1.5); BG DEOXYHEMOGLOBIN 12.2 % (0.0-5.0); BG FRACTION INSPIRED OXYGEN 100; BG METHEMOGLOBIN 0.5 % (0.0-1.5); BG OXYGEN SATURATION 87.7 % (92.0-98.5); BG PCO2 62.4 mmHg (35.0-45.0); BG PH 7.354 (7.350-7.450); BG SAMPLE SITE RIGHT RADIAL; BG TOTAL HEMOGLOBIN 17.6 g/dL (12.0-18.0); BG TOTAL RESPIRATORY RATE 22 b/min; BG VENT MODE VENT - AC
[2021-02-04] MEDS ORDERED: FUROSEMIDE 40MG/4ML VIAL IVP SCH (11:45)
[2021-02-04 11:55] LABS: PLATELET ESTIMATE NORMAL
[2021-02-04 14:38] LABS: BG BASE EXCESS 1.1 mmol/L (-2.0-2.0); BG CARBOXYHEMOGLOBIN 0.3 % (0.5-1.5); BG FRACTION INSPIRED OXYGEN 100; BG HCO3 ACT 30.8 mmol/L (22.0-26.0); BG METHEMOGLOBIN 0.5 % (0.0-1.5); BG OXYGEN SATURATION 82.9 % (92.0-98.5); BG OXYHEMOGLOBIN 82.2 % (94.0-97.0); BG PCO2 68.2 mmHg (35.0-45.0); BG PH 7.272 (7.350-7.450); BG PO2 54.9 mmHg (75.0-100.0); BG SAMPLE SITE RIGHT RADIAL; BG TOTAL HEMOGLOBIN 19.2 g/dL (12.0-18.0); BG VENT MODE VENT - AC
[2021-02-04] MEDS ORDERED: FUROSEMIDE 40MG/4ML VIAL IVP NR (14:45)
[2021-02-04] MEDS ORDERED: METHYLPREDNISOLONE SOD SUCC 40 MG/ML VIAL IV SCH (15:00)
[2021-02-04] MEDS ORDERED: IPRATROPIUM/ALBUTEROL 0.5-3(2.5)MG/3ML NEB HHN SCH (16:00)
[2021-02-04] MEDS ORDERED: ENOXAPARIN 100MG/ML SYR SUBCUT SCH (18:00)
[2021-02-04] MEDS ORDERED: METOCLOPRAMIDE HCL 10MG/2ML VIAL IV SCH (18:00)
== END 2021-02-04 20:17 | DRG 64 ==
LOC: ER 15:36 → 7EST 19:09 → SUPCPDRO 01-24 12:51 → ENRESERV 01-24 14:36 → CVICU 01-27 01:15
PROVIDERS: ADMIT Internal Medicine; ATTEND Internal Medicine
PROC: 5A1955Z Respiratory Ventilation, Greater than 96 Consecutive Hours (ICD-10-PCS; principal; 2021-01-27)
PROC: 02HV33Z Insertion of Infusion Device into Superior Vena Cava, Percutaneous Approach (ICD-10-PCS; 2021-01-27)
PROC: B548ZZA Ultrasonography of Superior Vena Cava, Guidance (ICD-10-PCS; 2021-01-27)
PROC: 0BH17EZ Insertion of Endotracheal Airway into Trachea, Via Natural or Artificial Opening (ICD-10-PCS; 2021-01-27)
PROC: 5A12012 Performance of Cardiac Output, Single, Manual (ICD-10-PCS; 2021-02-04)
DX: I63.9 Cerebral infarction, unspecified (principal); J96.01 Acute respiratory failure with hypoxia; I50.33 Acute on chronic diastolic (congestive) heart failure; G93.41 Metabolic encephalopathy; J69.0 Pneumonitis due to inhalation of food and vomit; E87.2 Acidosis; J44.0 Chronic obstructive pulmonary disease with (acute) lower respiratory infection; J44.1 Chronic obstructive pulmonary disease with (acute) exacerbation; M62.82 Rhabdomyolysis; N39.0 Urinary tract infection, site not specified; K92.2 Gastrointestinal hemorrhage, unspecified; I82.622 Acute embolism and thrombosis of deep veins of left upper extremity; D64.9 Anemia, unspecified; I11.0 Hypertensive heart disease with heart failure; E88.09 Other disorders of plasma-protein metabolism, not elsewhere classified; R29.703 NIHSS score 3; Z20.822 Contact with and (suspected) exposure to COVID-19; R13.10 Dysphagia, unspecified; E66.01 Morbid (severe) obesity due to excess calories; R73.9 Hyperglycemia, unspecified; K59.00 Constipation, unspecified; R47.81 Slurred speech; Z68.38 Body mass index [BMI] 38.0-38.9, adult; Z68.35 Body mass index [BMI] 35.0-35.9, adult; Z86.73 Personal history of transient ischemic attack (TIA), and cerebral infarction without residual deficits
CPT/HCPCS: 36415; 36600; 70496; 70498; 70551; 71045; 71250; 74018; 74176; 76937; 78580; 80048; 80053; 80061; 80305; 80320; 81003; 82270; 82375; 82550; 82553; 82607; 82728; 82746; 82805; 82962; 83036; 83540; 83550; 83605; 83735; 83880; 84443; 84478; 84484; 85014; 85018; 85025; 85044; 86850; 86900; 87070; 92610; 93005; 93306; 93880; 93923; 93970; 94002; 94003; 94640; 94644; 96374; 96375; 97162; 97530; 99291; C1725; C9113; C9803; J0360; J0456; J0696; J1450; J1650; J1815; J1940; J2185; J2405; J2543; J2704; J2765; J2920; J2930; J3420; J3490; J7030; J7040; J7042; J7060; J7608; Q9967; U0003; U0005; G0480